=== PATIENT | female | born 1985 | race Caucasian/White ===

== ENCOUNTER 2017-07-04 13:14 | Outpatient (CLI) | payer MEDICAID ==
[~2017-07-04] VITALS: Ht 160 cm; Wt 82.9 kg
[2017-07-04] MEDS ORDERED: PREN1TAB79 PO (13:22)
[2017-07-04] MEDS ORDERED: IRON1TAB78 PO (13:22)
[2017-07-04 13:27] VITALS: BP 139/80; PULSE 104; RESP 20; Ht 160 cm; Wt 82.9 kg
--- NOTE | 2017-07-04 15:25 | PN ---
Triage Information Date/Time July 04, 2017 Reason for visit: Complaining of persistent back pain which radiates to front Weeks of Gestation 37+ weeks /Para 6 para 1 History of 1 ectopic History of 3 spontaneous AB's Diabetes: none Hypertention: none Objective Vital Signs Date Time Temp Pulse Resp B/P Pulse Ox O2 Delivery O2 Flow Rate FiO2 07/04/17 13:27 98.0 104 20 139/80 Room Air Heart Rate: 140's Heart Rate Comments Reactive Contractions: 6-10 Minutes Apart Exam Cervix is long finger to posterior and -3 station of vertex Results/Medications Imaging Results Biophysical profile is ordered Disposition: Discharge Assessment/Plan Biophysical profile is normal we will follow patient as outpatient BAN IRENE MD Jul 04, 2017 15:25
--- NOTE | 2017-07-04 15:33 | RADRPT ---
PROCEDURE: US OB biophysical profile. CLINICAL INDICATION: evaluation TECHNIQUE: Multiple sonographic images of the pelvis were obtained. The images were reviewed on a PACS workstation. COMPARISON: No prior studies are available for comparison. FINDINGS: There is a single viable intrauterine gestation. Cardiac activity is present with 136 beats per min ranjith. There is a vertex presentation. The placenta is posterior. There is no evidence of placental abruption. There is a normal amount of amniotic fluid with an SULEIMAN = 16.0 cm. Biophysical profile: movement 2/2 tone 2/2. breathing 2/2 SULEIMAN 2/2 Total 03/28 RPTAT: AA . IMPRESSION: Normal biophysical profile. Physician Yanet Date Time Electronically viewed and signed by Physician Yanet on 07/04/2017 15:32 RA/
--- NOTE | 2017-07-04 17:41 | TRIAGE ---
OB Triage Datetime Report Generated by CPN: 07/04/2017 17:41 Datetime: 07/04/2017 16:00 Labor Evaluation Frequency: 5-7 Monitor Mode: External Duration (sec)2399: 60-80 Quality: Strong Pattern: Normal: <= 5 Contractions in 10 Minutes Resting Tone [place]: Relaxed Heart Rate FHR Baseline Rate: 140 Monitor Mode: External US FHR Baseline Changes: No Baseline Change Variability: Moderate 6-25 bpm Accelerations: 15X15 Decelerations: None; Early Category: Category I Pain Assessment Pain Scale: 7 Pain Presence: Intermittent Pain Type: Contraction Pain Location: Abdomen; Back Pain Goal: 2 Pain Relief Measures: Comfort Measures Datetime: 07/04/2017 15:30 Labor Evaluation Frequency: 3-6 Monitor Mode: External Duration (sec)2399: 40-60 Quality: Strong Pattern: Normal: <= 5 Contractions in 10 Minutes Resting Tone [place]: Relaxed Heart Rate FHR Baseline Rate: 140 Monitor Mode: External US FHR Baseline Changes: No Baseline Change Variability: Moderate 6-25 bpm Accelerations: 15X15 Decelerations: None Category: Category I Pain Assessment Pain Scale: 7 Pain Presence: Intermittent Pain Type: Contraction Pain Location: Abdomen; Back Pain Goal: 2 Pain Relief Measures: Comfort Measures Membrane Status: Intact Datetime: 07/04/2017 15:00 Labor Evaluation Frequency: X3 Monitor Mode: External Duration (sec)2399: 40-60 Quality: Strong Pattern: Normal: <= 5 Contractions in 10 Minutes Resting Tone [place]: Relaxed Heart Rate FHR Baseline Rate: 140 Monitor Mode: External US FHR Baseline Changes: No Baseline Change Variability: Moderate 6-25 bpm Accelerations: 15X15 Decelerations: None Category: Category I Pain Assessment Pain Scale: 7 Pain Presence: Intermittent Pain Type: Contraction Pain Location: Abdomen; Back Pain Goal: 2 Pain Relief Measures: Comfort Measures Membrane Status: Intact Datetime: 07/04/2017 14:45 Vaginal Exam Dilatation (cms): 0.5 Effacement (%): 50 Station: -3 Exam By: DR. WRIGHT Datetime: 07/04/2017 14:30 Labor Evaluation Frequency: 4-7 Monitor Mode: External Duration (sec)2399: 40-60 Quality: Strong Pattern: Normal: <= 5 Contractions in 10 Minutes Resting Tone [place]: Relaxed Heart Rate FHR Baseline Rate: 140 Monitor Mode: External US FHR Baseline Changes: No Baseline Change Variability: Moderate 6-25 bpm Accelerations: 15X15 Decelerations: None Category: Category I Pain Assessment Pain Scale: 7 Pain Presence: Intermittent Pain Type: Contraction Pain Location: Abdomen Pain Goal: 2 Membrane Status: Intact Datetime: 07/04/2017 14:00 Labor Evaluation Frequency: 3-8 Monitor Mode: External Duration (sec)2399: 60-80 Quality: Strong Pattern: Normal: <= 5 Contractions in 10 Minutes Resting Tone [place]: Relaxed Heart Rate FHR Baseline Rate: 130 Monitor Mode: External US FHR Baseline Changes: No Baseline Change Variability: Moderate 6-25 bpm Accelerations: 15X15 Decelerations: None Category: Category I Pain Assessment Pain Scale: 7 Pain Presence: Intermittent Pain Type: Contraction Pain Location: Abdomen Pain Goal: 2 Membrane Status: Intact Datetime: 07/04/2017 13:52 Vaginal Exam Dilatation (cms): 1.5 Effacement (%): 50 Station: -3 Exam By: MAY Cervix, Consistency: Soft Cervix, Position: Posterior Datetime: 07/04/2017 13:48 EGA: 37.1 Datetime: 07/04/2017 13:31 EGA: 37.2 Datetime: 07/04/2017 13:30 Stage of : OB Triage Assessment Type: Triage Maternal Assessment Level of Consciousness: Fully Conscious DTR's/Clonus: DTRs 2+; No Clonus Headache: Denies Blurred Vision: No Respiratory Effort: Unlabored; Regular Rhythm; Equal Expansion Nausea/Vomiting: Denies RUQ Epigastric Pain: Denies Lower Extremities Edema: None Degree: None Upper Extremities Edema: None Degree: None Facial Edema: None Temperature Route: Axillary Fall Risk Assessment History of Falling: (0) No Secondary Diagnosis: (0) No Ambulatory Aid: (0) Bedrest/Nurse Assist IV Therapy: (0) No Gait: (0) Normal/Bedrest/Immobile Mental Status: (0) Oriented to Own Ability Fall Score: 0 Fall Risk Score Definition: No Risk: No action required Datetime: 07/04/2017 13:23 Monitor Mode: External Monitor Mode: External US Pain Assessment Pain Scale: 7 Pain Presence: Intermittent Pain Type: Ache Pain Location: Abdomen Pain Goal: 2 Datetime: 07/04/2017 13:20 Time of Arrival: 07/04/2017 13:13 Arrived By: Ambulatory Arrived From: Home Chief Complaint: CONSTANT EPIGASTRIC AND ABDOMINAL PAIN SINCE YESTERDAY. Movement: Present Contractions: Irregular Rupture of Membranes: Denies Vaginal Bleeding: None Vaginal Discharge: Denies Recent Sexual Intercouse: Denies Abdominal Trauma: Not Applicable Patient Complaints: Other Time Provider Notified: 07/04/2017 14:06 Provider Notified: DR. WRIGHT Initial Plan: [facility]
== END 2017-07-04 16:20 | disposition home or self-care (01) ==
LOC: OBT 13:14 → L-D 13:14 → OBT 16:20
PROVIDERS: ATTEND Obstetrics & Gynecology
DX: O26.893 Other specified pregnancy related conditions, third trimester (principal); M54.9 Dorsalgia, unspecified; Z3A.37 37 weeks gestation of pregnancy
CPT/HCPCS: 76818; Z7500; G0463

== ENCOUNTER 2017-07-11 22:48 | Inpatient (IN) | payer MEDICAID ==
[~2017-07-11 22:48] MED LIST: IRON1TAB78 PO; PREN1TAB79 PO
[2017-07-11] MEDS ORDERED: LACTATED RINGER'S 1,000 ML IV SCH (23:07)
[2017-07-11] MEDS ORDERED: METHYLERGONOVINE 0.2 MG INJ IM PRN (23:30)
[2017-07-11] MEDS ORDERED: LACTATED RINGER'S 1,000 ML IV PRN (23:30)
[2017-07-11] MEDS ORDERED: OXYTOCIN 30 UNITS/LR 500 ML IV PRN (23:30)
[2017-07-11] MEDS ORDERED: HYDROCODONE/APAP (5/325) TAB PO PRN (23:30)
[2017-07-11] MEDS ORDERED: LIDOCAINE 1% (MPF) 30 ML INJ INJ PRN (23:30)
[2017-07-11] MEDS ORDERED: IBUPROFEN 600 MG TAB PO PRN (23:30)
[2017-07-11] MEDS ORDERED: OXYTOCIN 30 UNITS/LR 500 ML IV SCH (23:30)
[2017-07-11] MEDS ORDERED: MISOPROSTOL 200 MCG TAB PR PRN (23:30)
[2017-07-11] MEDS ORDERED: BUTORPHANOL 2 MG INJ IV PRN ×2 (23:30)
[2017-07-11] MEDS ORDERED: AMPICILLIN 2 GM/NS (PMX) 100 ML IV ONE (23:30)
[2017-07-11] MEDS ORDERED: CARBOPROST 250 MCG INJ IM PRN (23:30)
--- NOTE | 2017-07-11 23:36 | HP ---
Date/Time of Note Date/Time of Note DATE: 07/11/17 TIME: 23:34 OB - History Hx of Present Chief Complaint: contractions Estimated Due Date: Jul 24, 2017 : 6 Para: 1 Spontaneous : 4 Therapeutic : 0 Care: Limited Care Obstetrical Complications: None Medical Complications: None Past Family/Social History * Past Medical, Surgical, Family and Obstetric Histories reviewed from chart. GBS Status: Negative OB Admission Exam Physical Exam HEENT: WNL Heart: Rhythm Normal Lungs: Clear, Equal Abdomen: WNL Extremities: Normal Reflexes: Normal Cervical Dilatation: 10cm Station: +1 Membranes: Ruptured Amniotic Fluid: Clear OB Assessment/Plan Reason for admission: active labor Plan: Expectant Management, Other (deliver) MARKY WALL MD Jul 11, 2017 23:36
[2017-07-11 23:37] LABS: BASOPHILS % 0.2 % (0.0-2.0); EOSINOPHILS # 0.1 10^3/ul (0.0-0.5); EOSINOPHILS % 0.9 % (0.0-7.0); HEMATOCRIT 38.5 % (37.0-47.0); HEMOGLOBIN 12.6 g/dl (12.0-16.0); LYMPHOCYTES # 3.6 10^3/ul (0.8-2.9); LYMPHOCYTES % 27.6 % (15.0-51.0); MEAN CORPUSCULAR HEMOGLOBIN 25.4 pg (29.0-33.0); MEAN CORPUSCULAR HGB CONC 32.7 g/dl (32.0-37.0); MEAN CORPUSCULAR VOLUME 77.6 fl (82.0-101.0); MEAN PLATELET VOLUME 11.8 fl (7.4-10.4); MONOCYTES % 7.6 % (0.0-11.0); NEUTROPHIL # 8.1 10^3/ul (1.6-7.5); NEUTROPHILS % 62.7 % (39.0-77.0); PLATELET COUNT 264 10^3/UL (140-415); RED BLOOD COUNT 4.96 10^6/ul (4.20-5.40); RED CELL DISTRIBUTION WIDTH 19.1 % (11.5-14.5)
--- NOTE | 2017-07-11 23:39 | LDN ---
Date/Time of Note Date/Time of Note DATE: 07/11/17 TIME: 23:36 Delivery Summary Weeks of Gestation 38 weeks Placenta Delivered: Spontaneously Meconium: none Episiotomy: No Perineal laceration: 1 Laceration repair: Second degree laceration repaired with 3-0 Vicryl and 3-0 chromic. Anesthesia type: Local Estimated blood loss: 300 Sponge & Needle done & correct: Yes All needle counts correct: Yes Any foreign bodies felt in the: No Problems: Delivery Information Sex Sex: female Apgars 1 Minute: 9 5 Minute: 9 Suctioning Nose & mouth suctioned at tino: Yes Delee suction performed: No Umbilical Cord Cord presentations: no nuchal cord Cord Blood was obtained: Yes Mother & Baby Disposition Disposition Mom & Baby to Maternity; Good: Yes MARKY WALL MD Jul 11, 2017 23:39
[2017-07-11] MEDS: OXYTOCIN 30 UNITS/LR 500 ML IV SCH ×2 (23:40→23:53)
[2017-07-12] LABS: INR 0.99; PROTIME 13.1 Sec (12.2-14.2)
[2017-07-12] MEDS ORDERED: morphine 10 MG INJ IV ONE
[2017-07-12 00:01] LABS: PARTIAL THROMBOPLASTIN TIME 25.3 Sec (25.0-35.0)
[2017-07-12 02:15] VITALS: BP 106/67; PULSE 109; RESP 18
[2017-07-12] MEDS ORDERED: LACTATED RINGER'S 1,000 ML IV* SCH (02:46)
[2017-07-12] MEDS ORDERED: ACETAMINOPHEN 325 MG TAB PO PRN (03:00)
[2017-07-12] MEDS ORDERED: MISOPROSTOL 200 MCG TAB PR PRN (03:00)
[2017-07-12] MEDS ORDERED: BENZOCAINE 20% 56 ML SPRAY TOP PRN (03:00)
[2017-07-12] MEDS ORDERED: CARBOPROST 250 MCG INJ IM PRN (03:00)
[2017-07-12] MEDS ORDERED: LANOLIN 7 GM TUBE TOP PRN (03:00)
[2017-07-12] MEDS ORDERED: DIBUCAINE 1% 30 GM OINT PR PRN (03:00)
[2017-07-12] MEDS ORDERED: METHYLERGONOVINE 0.2 MG INJ IM PRN (03:00)
[2017-07-12] MEDS ORDERED: WITCH HAZEL/GLYCERIN PAD PR PRN (03:00)
[2017-07-12] MEDS ORDERED: HYDROCODONE/APAP (5/325) TAB PO PRN (03:00)
[2017-07-12] MEDS ORDERED: OXYTOCIN 30 UNITS/LR 500 ML IV PRN (03:00)
[2017-07-12] MEDS ORDERED: AMPICILLIN 1 GM/NS (PMX) 50 ML IV SCH (03:30)
[2017-07-12] MEDS: IBUPROFEN 600 MG TAB PO SCH ×4 (05:42→23:59)
[2017-07-12 07:30] VITALS: BP 101/62; PULSE 91; RESP 19
[2017-07-12 09:46] LABS: BASOPHILS % 0.2 % (0.0-2.0); EOSINOPHILS % 0.2 % (0.0-7.0); HEMATOCRIT 33.4 % (37.0-47.0); HEMOGLOBIN 11.2 g/dl (12.0-16.0); LYMPHOCYTES # 1.6 10^3/ul (0.8-2.9); LYMPHOCYTES % 9.2 % (15.0-51.0); MEAN CORPUSCULAR HEMOGLOBIN 25.9 pg (29.0-33.0); MEAN CORPUSCULAR HGB CONC 33.5 g/dl (32.0-37.0); MEAN CORPUSCULAR VOLUME 77.3 fl (82.0-101.0); MEAN PLATELET VOLUME 11.4 fl (7.4-10.4); MONOCYTE # 1.3 10^3/ul (0.3-0.9); MONOCYTES % 7.5 % (0.0-11.0); NEUTROPHIL # 13.8 10^3/ul (1.6-7.5); NEUTROPHILS % 82.1 % (39.0-77.0); PLATELET COUNT 189 10^3/UL (140-415); RED BLOOD COUNT 4.32 10^6/ul (4.20-5.40); WHITE BLOOD COUNT 16.9 10^3/ul (4.8-10.8)
[2017-07-12] MEDS: SENNA/DOCUSATE NA (8.6MG/50MG) TAB PO SCH ×2 (09:55→22:02)
--- NOTE | 2017-07-12 14:26 | DS ---
Date/Time of Note Date/Time of Note home today or next day DATE: 07/12/17 TIME: 14:25 Obstetrical Discharge Record Final Diagnosis Final Diagnosis: Term delivered Other Final Diagnosis Status post vaginal delivery Vaginal Delivery Obstetrical Delivery: Spontaneous Condition on Discharge Physical Assessment Last Vitals: See nurse's notes Voiding: Yes Bowel Movement: Yes Breast: Soft, non-tender, Filling Fundus: Firm Abdomen and Incision: Soft bowel sounds present Episiotomy: not applicable Calf Tenderness: No Patient Condition: Good BAN IRENE MD Jul 12, 2017 14:26
--- NOTE | 2017-07-12 14:28 | PD.PPDC ---
COLDFUSION Discharge Instruction Provider Information Physician Information 31 y/o female had vaginal delivery Condition Patient Condition: Good Diet Diet: Resume Regular Diet Activity/Restrictions Activity: Normal Activity May Shower Restrictions: Nothing in the Vagina Return to Work or School: Aug 28, 2017 Follow-up Follow-up with Physician: 4, Week/Weeks (in clinic) Return to clinic for OB Instructions: Breast Tenderness Depression Comment: pelvic rest X 6 weeks BAN IRENE MD Jul 12, 2017 14:28
[2017-07-12] MEDS ORDERED: IBUP-1542 PO (14:29)
[2017-07-12 16:00] VITALS: BP 101/50; PULSE 84; RESP 19
[2017-07-12 20:00] VITALS: BP 115/61; PULSE 87; RESP 18
[2017-07-13 04:00] VITALS: BP 93/50; PULSE 75; RESP 18
[2017-07-13] MEDS: IBUPROFEN 600 MG TAB PO SCH ×2 (05:38→11:37)
[2017-07-13 07:20] VITALS: BP 103/56; PULSE 81; RESP 19
[2017-07-13] MEDS: SENNA/DOCUSATE NA (8.6MG/50MG) TAB PO SCH (08:53)
[2017-07-13] MEDS ORDERED: DIPHTH/TET/ACEL PERTUSS (ADULT) 0.5 ML VIAL IM* ONE (09:00)
== END 2017-07-13 14:08 | disposition home or self-care (01) | DRG 775 ==
LOC: OBT 22:48 → L-D 22:49 → OBT 22:55 → L-D 22:55 → PP1 07-12 01:44
PROVIDERS: ADMIT Obstetrics & Gynecology; ATTEND Obstetrics & Gynecology
PROC: 10E0XZZ Delivery of Products of Conception, External Approach (ICD-10-PCS; principal; 2017-07-11)
PROC: 0KQM0ZZ Repair Perineum Muscle, Open Approach (ICD-10-PCS; 2017-07-11)
PROC: 3E033VJ Introduction of Other Hormone into Peripheral Vein, Percutaneous Approach (ICD-10-PCS; 2017-07-11)
DX: O70.1 Second degree perineal laceration during delivery (principal); Z37.0 Single live birth; Z3A.38 38 weeks gestation of pregnancy
CPT/HCPCS: 85025; 85610; 85730; 86592; 86900; 86901; 87340; 90715; J0290; J2210; J2270; J2590; J7120